=== PATIENT | male | born 1965 | race Caucasian/White ===

== ENCOUNTER 2016-07-05 22:40 | Emergency (ER) | payer OTHER ==
[~2016-07-05] VITALS: Ht 193 cm; Wt 108.9 kg
[~2016-07-05 22:40] MED LIST: AUGMENTIN 875 M1 TAB PO; FLAXSEED OIL1000 MG PO; MULTIVITAMIN1 TAB PO; PERCOCET 325 MG1 TA2 PO; TRAMADOL50 MG PO
[2016-07-05 22:46] VITALS: BP 118/69
[2016-07-05] MEDS ORDERED: BRILINTA90 M1 PO (23:28)
[2016-07-05] MEDS ORDERED: METOPROLOL TART25 M1 PO (23:29)
[2016-07-05] MEDS ORDERED: LOSARTAN POTASS25 M1 PO (23:29)
[2016-07-05] MEDS ORDERED: LO-DOSE ASPIRIN81 MG PO (23:29)
[2016-07-05] MEDS ORDERED: ATORVASTATIN CA80 M1 PO (23:29)
--- NOTE | 2016-07-05 23:29 | ED UPPER/LOWER EXTREMITY COMPL ---
History of Present Illness General Chief Complaint: Upper Extremity Problem Stated Complaint: BRUSING ON RIGHT ARM S/P STENT PLACEMENT 06/28 Source: patient Exam Limitations: no limitations Vital Signs & Intake/Output Vital Signs & Intake/Output Vital Signs Date Time Temp Pulse Resp B/P Pulse O2 O2 Flow FiO2 Ox Delivery Rate 07/05 2246 98.1 56 20 118/69 98 Room Air ED Intake and Output 07/06 0000 07/05 1200 Intake Total 0 Output Total Balance 0 Intake, Oral 0 Patient 240 lb Weight Allergies Coded Allergies: NO KNOWN ALLERGIES (07/05/16) Reconcile Medications Aspirin (Lo-Dose Aspirin EC) 81 MG TABLET.DR 1 TAB PO DAILY HEART/BLOOD ( Reported) Atorvastatin Calcium 80 MG TABLET 1 TAB PO DAILY CHOLESTEROL (Reported) Losartan Potassium 25 MG TABLET 1 TAB PO DAILY HEART (Reported) Metoprolol Tartrate 25 MG TABLET 0.5 TAB PO BID HEART/BP (Reported) Multivitamin (Multiple Vitamins) 1 TAB TAB 1 TAB PO DAILY SUPPLEMENT ( Reported) Ticagrelor (Brilinta) 90 MG TABLET 1 TAB PO BID HEART (Reported) Tramadol HCl (Ultram) 50 MG TABLET 1-2 TAB PO BIDP PRN PAIN THIRTY...[id number] Triage Note: TRIAGE: PT TO ER C/C BRUISING TO RT ARM S/P CARDIAC STENT PLACED 06/28/16. STATES HAD SOME BRUISING FROM BLOOD DRAW ATTEMPTS BEFORE THE STENT WAS PLACED THAT HAS BEEN WORSENING. +BLOODTHINNERS. SPOKE WITH REGARDING SAME, HAS APPT THE . STATES GIRLFRIEND CONVINCED HIM HE SHOULDN'T WAIT UNTIL THEN FOR EVAL SO CAME TO ER TONIGHT. COMPLAINS ONLY OF SPASMING INTERMITTENT PAIN TO ARM THAT KEEPS HIM UP AT NIGHT. Triage Nurses Notes Reviewed? yes Onset: Gradual Duration: day(s): Timing: recent history Severity: mild Pain/Injury Location: Right: Arm. Method of Injury: "I had a cardiac cath through my wrist." Modifying Factors: Worsens With: movement. Associated Symptoms: "I have a bruise." HPI: 50yo gentleman, h/o recent cardiac stent on aspirin and brilinta, presents with right arm bruising one week after a cardiac catheterization. He notes that he has bruising on his right arm where they accessed his right radial artery. "I can move my arm.. but the bruising goes all the way into my forearm. It hurts when I move my arm." He notes that there is no redness, tenderness, fever. He is able to move his arm and wrist. There is no numbness or tingling. He is otherwise well. Past History Travel History Traveled to [place] past 21 day No Medical History Any Pertinent Medical History? 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 No Review of Systems Review of Systems Constitutional: Reports: no symptoms. EENTM: Reports: no symptoms. Respiratory: Reports: no symptoms. Cardiovascular: Reports: no symptoms. Gastrointestinal/Abdominal: Reports: no symptoms. Genitourinary: Reports: no symptoms. Musculoskeletal: Reports: no symptoms. Skin: Reports: no symptoms. Neurological/Psychological: Reports: no symptoms. Hematologic/Endocrine: Reports: no symptoms. Immunological: Reports: no symptoms. All Other Systems: Reviewed and Negative Physical Exam Physical Exam General Appearance: well developed/nourished, mild distress Head: atraumatic Eyes: Bilateral: normal appearance. Ears, Nose, Throat: normal pharynx, normal ENT inspection, hearing grossly normal Neck: normal inspection, supple Cardiovascular/Respiratory: regular rate/rhythm Back: normal inspection Elbow Right: ecchymosis, ecchymosis - yellow and marroon - along right forearm. 2+ distal radial pulse. right hand is warm with normal range of motion and sensation. No sign of infection. Skin: intact, normal color, warm/dry Lymphatic: no anterior cervical frank Progress Differential Diagnosis: hematoma, ecchymosis vs other. Plan of Care: discussed at length... pt with hematoma related to recent angio-cath access on aspirin and brilinta... otherwise stable exam. no sign of active bleeding or infection. Discussed at length... pt safe for discharge. Departure Departure Disposition: HOME OR SELF CARE Condition: Stable Clinical Impression Primary Impression: Hematoma Referrals: PATIENT HAS NO PRIMARY CARE DR (PCP/Family) Departure Forms: Customer Survey General Discharge Information Prescriptions: Current Visit Scripts Tramadol HCl (Ultram) 1-2 TAB PO BIDP PRN PAIN #30 TAB Ref 1 THIRTY...[id number]
[2016-07-05] MEDS ORDERED: ULTRAM50 M1 PO (23:46)
== END 2016-07-05 23:58 ==
LOC: ERH 22:40
DX: S40.021A Contusion of right upper arm, initial encounter (principal); X58.XXXA Exposure to other specified factors, initial encounter

== ENCOUNTER 2016-12-24 12:34 | Emergency (ER) | payer OTHER ==
[~2016-12-24] VITALS: Ht 193 cm; Wt 111.1 kg
[~2016-12-24 12:34] MED LIST changes: +ATORVASTATIN CA80 M1 PO; +BRILINTA90 M1 PO; +LO-DOSE ASPIRIN81 MG PO; +LOSARTAN POTASS25 M1 PO; +METOPROLOL TART25 M1 PO; +ULTRAM50 M1 PO
--- NOTE | 2016-12-24 12:39 | ED SKIN/ALLERGY COMPLAINT ---
History of Present Illness General Chief Complaint: Allergy Symptoms Stated Complaint: ALLERGIC REACTION Source: patient Exam Limitations: no limitations Vital Signs & Intake/Output Vital Signs & Intake/Output Vital Signs Date Time Temp Pulse Resp B/P B/P Pulse O2 O2 Flow FiO2 Mean Ox Delivery Rate 12/24 1617 97.3 60 16 123/75 12/24 1433 98.0 70 18 123/81 99 Room Air 12/24 1401 97.1 66 18 148/74 95 Room Air 12/24 1325 96 12/24 1245 95 Room Air 12/24 1237 96.7 68 20 155/83 94 Room Air Allergies Coded Allergies: NO KNOWN ALLERGIES (07/05/16) Reconcile Medications Aspirin (Lo-Dose Aspirin EC) 81 MG TABLET.DR 1 TAB PO DAILY HEART/BLOOD ( Reported) Atorvastatin Calcium 80 MG TABLET 1 TAB PO DAILY CHOLESTEROL (Reported) Losartan Potassium 25 MG TABLET 1 TAB PO DAILY HEART (Reported) Metoprolol Tartrate 25 MG TABLET 0.5 TAB PO BID HEART/BP (Reported) Multivitamin (Multiple Vitamins) 1 TAB TAB 1 TAB PO DAILY SUPPLEMENT ( Reported) Prednisone (Deltasone) 20 MG TABLET 1 TAB PO TID ALLERGIC REACTION Prednisone (Deltasone) 20 MG TABLET 1 TAB PO TID ALLERGIC REACTION Ticagrelor (Brilinta) 90 MG TABLET 1 TAB PO BID HEART (Reported) Tramadol HCl (Ultram) 50 MG TABLET 1-2 TAB PO BIDP PRN PAIN THIRTY...[id number] Triage Note: PT TO ED ROOM 11 FOR ALLERGIC REACTION. PT WAS OUTSIDE WORKING. STARTED WITH EYE SWELLING AND "CONGESTION" 45 MINS AGO. NO SOB OR DIFF BREATHING NOTED. Triage Nurses Notes Reviewed? yes Onset: Abrupt Duration: hour(s):, continues in ED Timing: single episode today HPI: 51-year-old male comes into emergency room for facial swelling. Patient was working outside with leaves and touch his face. Denies any tongue swelling. Denies any rash. Denies any difficulty breathing. His eyes are all swelling and watery. Comes in for further evaluation. Denies any other associated symptoms. (SABINE INMAN) Past History Travel History Traveled to [place] past 21 day No Medical History Any Pertinent Medical History? 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 No (SABINE INMAN) Review of Systems Review of Systems Constitutional: Reports: no symptoms. EENTM: Reports: see HPI. Respiratory: Reports: no symptoms. Cardiovascular: Reports: no symptoms. GI: Reports: no symptoms. Genitourinary: Reports: no symptoms. Musculoskeletal: Reports: no symptoms. Skin: Reports: see HPI. Neurological/Psychological: Reports: no symptoms. Hematologic/Endocrine: Reports: no symptoms. Immunologic/Allergic: Reports: no symptoms. All Other Systems: Reviewed and Negative (SABINE INMAN) Physical Exam Physical Exam General Appearance: well developed/nourished, mild distress Head: atraumatic Eyes: Bilateral: PERRL, EOMI, other (periorbital edema bilaterally). Ears, Nose, Throat: normal ENT inspection, hearing grossly normal, no angioedema , uvula is slightly swollen, otherwise normal pharynx Neck: normal inspection Respiratory: no respiratory distress Cardiovascular: regular rate/rhythm Back: normal inspection Extremities: normal inspection, normal range of motion, no edema Neurologic/Psych: awake, alert, oriented x 3, normal mood/affect Skin: intact, rash Skin Problem Location: face Skin Problem Character: see above Lymphatic: no anterior cervical frank (SABINE INMAN) Progress Differential Diagnosis: abscess/cellulitis, allergic reaction, anaphylaxis, angioedema, contact dermatitis, urticaria Plan of Care: Orders Procedure Date/time Status Telemetry/Wind Farm Designer 12/24 1252 Active Departure Departure Disposition: HOME OR SELF CARE Condition: Stable Clinical Impression Primary Impression: Allergic reaction Referrals: PATIENT HAS NO PRIMARY CARE DR Additional Instructions: Take prednisone as prescribed. Follow-up with primary care doctor. Return immediately if any concerns worsening symptoms. Please go over all results of today's visit with your primary care doctor. Contact your primary care doctor to let them know you were here in the emergency room. There may be nonspecific findings which may not be related to your visit today here in the emergency room but may require further evaluation and chronic monitoring by your primary care doctor. If you had a laceration today the chance of foreign body always remains. You should follow-up with your primary care doctor for recheck in 3-5 days for a wound check. If you had an x-ray done there is a chance that a fracture could have been missed on initial read and you should follow-up with your primary care doctor for repeat x-rays if symptoms persist. If your blood pressure was elevated here in the emergency room please have rechecked by her primary care doctor within the next 48 hours by your primary care doctor. If you were prescribed a narcotic here in the emergency room or any type of controlled substances you're not allowed to drive while taking this medication or operate any type of heavy machinery. Narcotics can make you feel lightheaded dizziness nausea and can cause constipation. You may need to meat pickler a stool softener. Thank you for choosing [facility] emergency room. Please return to the emergency room immediately if you have any other concerns worsening of symptoms. Departure Forms: Customer Survey General Discharge Information Prescriptions: Current Visit Scripts Prednisone (Deltasone) 1 TAB PO TID #15 MG Prednisone (Deltasone) 1 TAB PO TID #15 MG Comments 12/24/2016 3:50:10 PM Patient observed here for over 3 hours. Patient's symptoms have significantly improved. No wheezing. No angioedema. Patient was discharged home on oral steroids. Return if any other concerns worsening symptoms. Patient was reevaluated multiple times here in the emergency room and continued to improve with his symptoms. Patient understands and agrees with plan of care. Shared decision making. Patient is ready to leave. (SABINE INMAN) PA/TRANSFER CLERK Co-Sign Statement Statement: ED Attending supervision documentation- [] I saw and evaluated the patient. I have also reviewed all the pertinent lab results and diagnostic results. I agree with the findings and the plan of care as documented in the PA's/TRANSFER CLERK's documentation. [X] I have reviewed the ED Record and agree with the PA's/TRANSFER CLERK's documentation. [] Additions or exceptions (if any) to the PAs/TRANSFER CLERK's note and plan are summarized below: [] (ARON HYDE,GIANFRANCO Hong)
[2016-12-24] MEDS ORDERED: DELTASONE20 MG PO ×2 (15:47→15:48)
[2016-12-24 16:17] VITALS: BP 123/75
== END 2016-12-24 16:25 ==
LOC: ERH 12:34
DX: T78.40XA Allergy, unspecified, initial encounter (principal)
CPT/HCPCS: 1263; 96374; 96375; J1200; J2930

== ENCOUNTER 2017-09-08 13:05 | Emergency (ER) | payer OTHER ==
[~2017-09-08] VITALS: Ht 193 cm; Wt 108.9 kg
[~2017-09-08 13:05] MED LIST changes: +DELTASONE20 MG PO; +MULTIPLE VITAM1 EAC2 PO; -MULTIVITAMIN1 TAB PO
--- NOTE | 2017-09-08 13:32 | ED SKIN/ALLERGY COMPLAINT ---
History of Present Illness General Chief Complaint: General Adult Stated Complaint: ALLERGIC REACTION, SELF ADMINISTERED EPIPEN (10M) Source: patient Exam Limitations: no limitations Vital Signs & Intake/Output Vital Signs & Intake/Output Vital Signs Date Time Temp Pulse Resp B/P B/P Pulse O2 O2 Flow FiO2 Mean Ox Delivery Rate 09/08 1720 98.2 73 17 110/79 98 Room Air 09/08 1637 98.2 76 16 124/74 95 Room Air Room Air 09/08 1342 98 Nasal 2.0L Cannula 09/08 1330 93 Nasal 2.0L Cannula 09/08 1309 97.8 116 16 135/85 89 Room Air Allergies Coded Allergies: NO KNOWN ALLERGIES (07/05/16) Reconcile Medications Aspirin (Lo-Dose Aspirin EC) 81 MG TABLET.DR 1 TAB PO DAILY HEART/BLOOD ( Reported) Atorvastatin Calcium 80 MG TABLET 1 TAB PO DAILY CHOLESTEROL (Reported) Carvedilol 3.125 MG TABLET 1 TAB PO BID HEART (Reported) Epinephrine (Epipen 2-Gianni) 0.3 MG/0.3 ML AUTO.INJCT 1 DOSE IM ONCWE DAILY PRN ALLERGIC REACTION Hydroxyzine Hydrochloride (Atarax) 50 MG TAB 1 TAB PO TID PRN ALOLERGIC REACTION Multivitamin (Multiple Vitamins) 1 EACH TABLET 1 TAB PO DAILY VITAMIN SUPPORT (Reported) Prednisone 10 MG TABLET 1 DOSE PO ONCE DAILY ALLERGIC REACTION 5 TABS X 2 DAYS THEN 4 TABS X2 DAYS 3 TABS X 1 DAYS THEN 2 TABS X2 DAYS 1 TAB X 2 DAYS Ticagrelor (Brilinta) 90 MG TABLET 1 TAB PO BID HEART (Reported) Triage Note: 51 Y/O MALE PRESENTS S/P ACCIDENTAL INGESTION OF ALMOND MILK WITH KNOWN ALLERGY - TOOK "A THIRD OF A BOTTLE LIQUID BENADRYL AND MY EPI PEN" APPROX 10 MIN AGO. PRESENTS WITH BILATERAL EYELID SWELLING, INS/EXP WHEEZING AND FINE RED RASH TO BODY; FREQUENTLY CLEARING THROAT IN TRIAGE. SAT 89% IV EST. PT MEDICATED WITH 50MG BENADRYL, 20MG PEPCID AND 125MG SOLUMEDROL PER MD MARSH. RT PAGED Triage Nurses Notes Reviewed? yes Onset: Abrupt Duration: minute(s): (20), constant, continues in ED Timing: single episode today Severity: moderate, severe Severity Numbers: 6 Location: generalized Possible Factors: exposure to allergen No Modifying Factors: none HPI: 51-year-old male past medical history of coronary artery disease, OR presents for evaluation of allergic reaction. Patient states that about one hour before presentation he accidentally drank almond milk. He has a known allergy to this. Shortly after drinking became short of breath he had swelling of the lips tongue throat eyes diffuse itching. He administered an EpiPen with some improvement. He is still reporting some shortness of breath and swelling. No chest pain no nausea or vomiting. He's never given himself an EpiPen before. No previous history of anaphylaxis. No sweats chills hemoptysis or lower extremity edema. (Zia Caldwell) Past History Travel History Traveled to [place] past 21 day No Medical History Any Pertinent Medical History? 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 No (Zia Caldwell) Review of Systems Review of Systems Constitutional: Reports: no symptoms. EENTM: Reports: nasal congestion, throat swelling. Respiratory: Reports: see HPI, short of breath. Cardiovascular: Reports: no symptoms. GI: Reports: no symptoms. Genitourinary: Reports: no symptoms. Musculoskeletal: Reports: no symptoms. Skin: Reports: see HPI, rash. Neurological/Psychological: Reports: no symptoms. Hematologic/Endocrine: Reports: no symptoms. Immunologic/Allergic: Reports: no symptoms. All Other Systems: Reviewed and Negative (Zia Caldwell) Physical Exam Physical Exam General Appearance: well developed/nourished, no apparent distress, alert, awake Head: atraumatic, normal appearance Eyes: Bilateral: PERRL, EOMI, other (SEE COMMENTS ). Ears, Nose, Throat: normal pharynx, hearing grossly normal, nasal congestion Neck: normal inspection, supple, full range of motion Respiratory: normal breath sounds, chest non-tender, no respiratory distress, lungs clear Cardiovascular: regular rate/rhythm, normal peripheral pulses Peripheral Pulses: 2+ radial (R), 2+ radial (L) Gastrointestinal: soft, non-tender Back: normal inspection, normal range of motion, no vertebral tenderness Extremities: normal inspection, normal range of motion, no edema Neurologic/Psych: no motor/sensory deficits, awake, alert, oriented x 3, normal gait, normal mood/affect Skin: intact, normal color, warm/dry, rash Skin Problem Location: generalized Skin Problem Character: THERE IS A FAINT ERYTHEMATOUS BLOTCHY RASH LOCATED CHEST NECK AND UPPER EXTREMITIES NO VISIBLE HIVES Lymphatic: no anterior cervical frank Comments: There is periorbital edema bilaterally. No erythema. Extraocular motion is intact no discharge. Patient is tolerating secretions no stridor (Zia Caldwell) Progress Differential Diagnosis: abscess/cellulitis, allergic reaction, anaphylaxis, angioedema, asthma, contact dermatitis, drug reaction, erythema multiforme, urticaria Plan of Care: Orders Procedure Date/time Status EKG 09/08 1319 Active Patient seen and evaluated. He has a known allergy to almonds and drank almond milk by mistake. He currently is hypoxic on room air reporting shortness of breath. He administered an EpiPen about 10 minutes before presentation. Patient is talking in full sentences there is no stridor or wheezing on exam. Patient was medicated with Solu-Medrol Pepcid and Benadryl. A DuoNeb was ordered. EKG ordered. Patient will be monitored in the emergency department for several hours. On reevaluation patient is resting comfortably. No respiratory distress. No chest pain. Patient was monitored for 4-1/2 hours. He was ambulated in the emergency department and did not desaturate. The swelling in his eyes Improved. NO LONGER short of breath vital signs are stable. Patient will be discharged home with a prescription for prednisone, hydroxyzine and Pepcid. Also be given a refill of his EpiPen. Advised him to follow-up with his primary care doctor and an human resource internship. Discussed return precautions and when/how to use EpiPen. Patient agrees the plan. Case discussed with Dr. MARSH and he agrees Initial ED EKG: normal sinus rhythm, no ST T wave changes, LAFB (Zia Caldwell) Departure Departure Disposition: HOME OR SELF CARE Condition: Stable Clinical Impression Primary Impression: Allergic reaction Qualifiers: Encounter type: initial encounter Qualified Code: T78.40XA - Allergy, unspecified, initial encounter Referrals: Unknown Additional Instructions: ResT drink plenty of fluids. Take prednisone as directed for the full course. Hydroxyzine every 8 hours. Take Pepcid twice daily. Monitor symptoms closely if you have shortness of breath difficulty swallowing administered EpiPen return immediately. Otherwise follow-up with primary care doctor. Departure Forms: Customer Survey General Discharge Information Prescriptions: Current Visit Scripts Prednisone 1 DOSE PO ONCE DAILY #1 DP 5 TABS X 2 DAYS THEN 4 TABS X2 DAYS 3 TABS X 1 DAYS THEN 2 TABS X2 DAYS 1 TAB X 2 DAYS Hydroxyzine Hydrochloride (Atarax) 1 TAB PO TID PRN ALOLERGIC REACTION #30 TAB Epinephrine (Epipen 2-Gianni) 1 DOSE IM ONCWE DAILY PRN ALLERGIC REACTION #1 DP (Zia Caldwell) PA/TURNING AND BEADING MACHINE OPERATOR Co-Sign Statement Statement: ED Attending supervision documentation- X I saw and evaluated the patient. I have also reviewed all the pertinent lab results and diagnostic results. I agree with the findings and the plan of care as documented in the PA's/TURNING AND BEADING MACHINE OPERATOR's documentation. [] I have reviewed the ED Record and agree with the PA's/TURNING AND BEADING MACHINE OPERATOR's documentation. [] Additions or exceptions (if any) to the PAs/TURNING AND BEADING MACHINE OPERATOR's note and plan are summarized below: [] (Alice HYDE,Yusef)
[2017-09-08] MEDS ORDERED: CARVEDILOL3.125 M1 PO (14:17)
[2017-09-08 17:20] VITALS: BP 110/79
[2017-09-08] MEDS ORDERED: PREDNISONE10 M2 PO (17:26)
[2017-09-08] MEDS ORDERED: HYDROXYZINE HCL50 M1 PO (17:26)
[2017-09-08] MEDS ORDERED: EPIPEN 2-P0.3 MG/0.3 IM (17:26)
== END 2017-09-08 17:39 ==
LOC: ERH 13:05
DX: T78.1XXA Other adverse food reactions, not elsewhere classified, initial encounter (principal)
CPT/HCPCS: 1263; 93005; 93010; 96374; 96375; J1200; J2930